=== PATIENT | female | born 1955 | race Caucasian/White ===

== ENCOUNTER → 2018-05-16 | Outpatient (CLI) | payer OTHER ==
[~2018-05-16] MED LIST: CYMBALTA30 MG PO; FOLIC ACID1 MG PO; FOSAMAX 70 MG T70 MG PO; LIPITOR 20 MG T20 M1 PO; LUNESTA3 MG PO; METHOTREXATE 22.5 MG PO; NEURONTIN600 MG PO; NORVASC5 MG PO; PREDNISONE 5 MG5 M1 PO; TRAMADOL 50 MG50 MG PO; TURMERIC 500 M1 EACH PO; VITAMIN D1000 UNI1 PO; VITAMINC500 PO; ZETIA10 MG PO
--- NOTE | ~2018-05-16 | PAINCON ---
[address] [address] PAIN MANAGEMENT CONSULTATION Name: LAVINIA CARREON Room: [facility] BHARTI AggarwalTrisha#: [id number] Admission: 05/16/18 Attend Phys: Katy Don MD Discharge: Date of : 57 Report #: [id number] THIS REPORT FOR: //name// CC: Trip Don DATE OF SERVICE: 05/16/2018 CHIEF COMPLAINT: Back pain, neck pain, shoulder pain, and leg pain. The patient is a 62-year-old female who has been referred to the pain clinic for evaluation of chronic pain involving her neck, fibromyalgia and generalized pain all over. HISTORY: The patient is a 62-year-old female who describes her pain in her own words as my whole body hurts notes that the pain is worse with weather, standing too long, lifting too much pressure. She is not sure of anything that makes it significantly better. Describes it as continuous, steady, constant, burning, cramping, aching, gnawing, throbbing, pounding, sharp and tender. Rates it as a 9/10 on today. Pain has worsened over the last 2 years. She has been started on gabapentin. She feels that this medication is making some inroads, albeit small. Has a history of rheumatoid arthritis. Has pain and discomfort in both left and right hip area. ALLERGIES: PENICILLIN. CURRENT MEDICATIONS: Fosamax 70 mg weekly, Norvasc 5 mg daily, vitamin C 500 mg total 1000 mg daily, Lipitor 20 mg at bedtime, vitamin D 1000 units, Cymbalta 30 mg, Lunesta 3 mg, Zetia 10 mg, folic acid 1 mg, Neurontin 600 mg t.i.d., methotrexate 2.5 mg weekly, prednisone 5 mg daily, tramadol 50 mg q.i.d., turmeric 500 mg. PAST MEDICAL HISTORY: Hypertension, colon problems, colon cancer in 1999, fibromyalgia, osteoporosis, rheumatoid arthritis, and chronic neck pain. PAST SURGICAL HISTORY: 1981, colon cancer in 1999, right broken ankle 2001, vulva cancer in 2006, left broken ankle in 2006. SOCIAL HISTORY: She is disabled, has not worked in the last 2 years. REVIEW OF SYSTEMS: Fatigue, weakness, headaches, wears glasses, blurred vision, painful bowel movement/constipation, frequent urination, frequent recurring headaches, numbness and tingling sensation, joint pain, joint stiffness, joint weakness of muscles and joints, muscle cramps, back pain, difficulty walking, [place] [address] PAIN MANAGEMENT CONSULTATION Name: LAVINIA CARREON Room: [facility]#: [id number] Admission: 05/16/18 Attend Phys: Katy Don MD Discharge: Date of : 57 Report #: [id number] LABORATORY: 1. Pelvis and bilateral hip, 01/30/2017. Impression: Normal radiographic evaluation of the pelvis and bilateral hips. 2. Sacroiliac joints 11/09/2017, normal radiographic evaluation of the SI joints. 3. Thoracic spine 11/09/2017. Impression: Normal thoracic spine degenerative changes mid and lower cervical spine. 4. MRI of the lumbar spine without contrast 03/07/2018. IMPRESSION: 1. Degenerative changes involving lumbar disk and facets. 2. Central spinal, lateral recess and neural foraminal stenosis greater on the left at L4-L5 from bulging and facet arthropathy. 3. Right lateral disk osteophyte complex at the L3-L4 encroaching L3 nerve root. 4. Small central posterior disk bulge/protrusion extending caudally from L5-S1. L4-L5 disk bulge and marked facet arthropathy present. Findings result in bilateral recess stenosis, worse on the left and mild encroachment on the inferior aspect of the left neural foramen. Mild central spinal stenosis is seen. Thecal sac 0.8 cm AP. 5. MRI of the cervical spine dated 03/07/2018. C2/C3, there is a 2 mm anterolisthesis of C2. No evidence of focal disk protrusion. No signals of central canal or foraminal stenosis. 6. C3-C4 disk space narrowing and endplate changes are seen. There is facet and uncovertebral hypertrophy. Posterior disk osteophyte complex is seen. Central canal measures 9 mm AP. There is bilateral foraminal stenosis. 7. C5/C4. The disk space is narrowing and endplate changes are seen. Osteophytes are present. Posterior disk osteophyte complex is seen. This is more pronounced on the left of midline. Central canal measures 9 mm AP. 8. C5/C6 disk space narrowing and endplate changes are seen. Osteophytes are present. There is facet and uncovertebral hypertrophy. Posterior osteophyte disk complex is seen. Central canal 9 mm AP. 9. C6/C7 osteophytes are present. Posterior disk osteophyte complex is noted. Central canal measures 9-10 mm AP. 10. Left knee 01/30/2017. Impression: Mild bicompartmental degenerative disease of knee. 11. Ankle, left 01/30/2017. Impression: Plate and screw fixation of the distal fibula including the malleolus. Orthopaedic hardware is intact. No acute fracture. 12. Mild plano calcaneal osteophytic spurring. 13. Right shoulder 01/30/2017. Impression: Marked degenerative disease of the acromioclavicular joint with marked osteophytes noted. 14. Left shoulder 01/30/2017. Impression: Moderate degenerative disease of the acromioclavicular joint with moderate osteophyte formation present. 15. Right knee 01/30/2017. Mild patellofemoral arthrosis. 16. Right hand 01/30/2017. Minimal degenerative [place] [address] PAIN MANAGEMENT CONSULTATION Name: LAVINIA CARREON Room: [facility]#: [id number] Admission: 05/16/18 Attend Phys: Katy Don MD Discharge: Date of : 57 Report #: [id number] metacarpal interphalangeal joint. 17. Cervical spine 11/09/2017, moderate to marked degenerative arthritic changes, mild to lower cervical spine. Evidence for muscle spasms. Lumbar spine 11/09/2017, moderate degenerative arthritic changes of lumbar spine, greatest at L3-L4 and L5-S1, osteopenia. 18. Left hand 01/30/2017, normal radiographic evaluation of the left hand. PAIN CLINIC ASSESSMENT/PORS: 1. The patient has some osteoarthritic changes in her neck and knee. 2. The patient is being treated for rheumatoid arthritis. 3. Pain intensity 11/19. 4. Fall risk. The patient has not fallen in the last 3 months. 5. Blood thinner. The patient is not on a blood thinning medication. 6. Hypertension. The patient is not being treated for hypertension. 7. Risk assessment tool, low for opioid use. 8. Functional assessment tool . 8. Recreational drug use: The patient denies use of recreational drugs. 9. Tobacco: The patient smokes 1-1/2 pack of cigarettes per day, has smoked for the last 50 years. 10. Alcohol: The patient denies use of alcoholic beverages. PHYSICAL EXAMINATION: GENERAL: The patient is a well-developed, well-nourished white female. Appears her stated age. She is alert and oriented x 3. Her affect is appropriate. Speech is fluent. HEENT: Normocephalic, atraumatic. Extraocular muscles intact. Sclerae nonicteric. Mucous membranes are moist. NECK: Without adenopathy or JVD. The patient does complain of significant pain and discomfort involving the occipital areas triceps and deltoid areas. Muscle strength in the upper extremity judged to be 5/5 for the major muscle groups in the upper extremities. Deep tendon reflexes are +1 on the left than the right for the biceps. ABDOMEN: Nontender, bowel sounds present. LUNGS: Clear to auscultation without rhonchi or rales. Lower extremity muscle strength is judged to be 5/5 for the major muscle groups in the lower extremity. Jimbo's sign was negative. Anterior and posterior spring tests were negative. Forward bending to about 45 degrees caused increased pain and discomfort in the patient's low back area. Left and right lateral rotation were not problematic. The patient is able to rise to her toes and rise to the level on her heels. Deep tendon reflexes are +2 at the knees bilaterally. Ankle jerks +1. IMPRESSION: 1. Chronic pain, somewhat global in nature. 2. Hypertension. 3. Colon problems, [place] [address] [address] PAIN MANAGEMENT CONSULTATION Name: LAVINIA CARREON [id number] Admission: 05/16/18 Attend Phys: Katy Don MD Discharge: Date of : 57 Report #: [id number] 4. Fibromyalgia. 5. Osteoporosis. 6. Rheumatoid arthritis. 7. Chronic neck pain. RECOMMENDATIONS: We discussed treatment options with the patient. She feels that the gabapentin medication seems to be showing some signs of benefit. Through the evaluation, the patient does not show any dermatomal delineation for pain in the cervical area. States it is somewhat global involving her arms. Has some limitation of movement in her neck, has some pain and discomfort down into her legs, but this does not follow a dermatomal pattern. Has some pain and discomfort in the left and the right hip area. We have explained that the treatments that have been most efficacious with patients with fibromyalgia or activity level of 30-40 minutes of exercise weekly. We discussed the use of opioid medications. I am not sure how much benefit this would provide residential for the patient. Initially, most people find that opioid medications are helpful, but as the time continues to pass, they find them less efficacious secondary to development of tolerance as well as there is a possibility of addiction associated with this. A 72,000 people last year as a result of overdose from the medications. At this juncture, I think to continue with the gabapentin carefully as you have been doing and for the patient to stay as active as possible or the things that are going to be the most beneficial at this juncture. We would like to thank you for letting us participate in her care. We hope she continues to improve. By: [id number]. Guillermo Don MD /nt
== END ==
LOC: M.PC 11:50
DX: M81.0 Age-related osteoporosis without current pathological fracture (principal); M06.9 Rheumatoid arthritis, unspecified; G89.29 Other chronic pain; M54.2 Cervicalgia; M79.7 Fibromyalgia; I10 Essential (primary) hypertension; Z79.899 Other long term (current) drug therapy